=== PATIENT | female | born 1985 | race African-American/Black ===

== ENCOUNTER 2019-09-02 20:38 | Emergency (ER) | payer MEDICAID, OTHER ==
[~2019-09-02] VITALS: Ht 185.4 cm; Wt 158.8 kg
[2019-09-02] MEDS ORDERED: cloNIDine HCL 0.1 MG TAB PO ONE (21:15)
[2019-09-02] MEDS ORDERED: InsuLIN REG 1unit/0.01ml Soln (100units/ml) IV ONE (21:15)
[2019-09-02] MEDS ORDERED: SODIUM CHLORIDE 0.9% 1,000 ML IV ONE ×2 (21:15→22:15)
[2019-09-02 22:10] LABS: Basophils # (auto) 0 uL; Basophils % (auto) 0.3 % (0.0-2.0); Eosinophils # (auto) 0.1 uL; Eosinophils % (auto) 1.2 % (0.0-7.0); Hemoglobin 12.5 g/dL (12.2-16.2); Lymphocytes # (auto) 1.9 uL; Lymphocytes % (auto) 22.5 % (10.0-50.0); Mean Corpuscular Hemoglobin 25.1 pg (28.0-32.0); Mean Corpuscular Volume 78.4 fL (80.0-100.0); Monocytes # (auto) 0.5 uL; Monocytes % (auto) 5.7 % (0.0-12.0); Neutrophils # (auto) 5.8 uL; Neutrophils % (auto) 70.3 % (37.0-80.0); Platelet Count (auto) 257 10^3/uL (140-450); Red Blood Cells 4.97 10^6/uL (4.0-5.20); Red Cell Distribution Width 14.2 % (11.8-14.3); White Blood Cell 8.3 10^3/uL (4.4-10.8)
[2019-09-02 22:17] LABS: Albumin 3.7 g/dL (3.4-5.0); BUN/Creatinine Ratio 15.2; Calcium 9.5 mg/dL (8.5-10.1); Potassium 4.3 mmol/L (3.5-5.1)
[2019-09-02 22:19] LABS: INR 1.08 (0.9-1.15); Partial Thromboplastin Time 29.9 sec (23.64-32.05)
[2019-09-02 22:20] LABS: Bilirubin, Total 0.2 mg/dL (0.2-1.0); Total Protein 8.8 g/dL (6.4-8.2)
[2019-09-03 00:03] VITALS: BP 143/86
== END 2019-09-03 00:06 | disposition home or self-care (01) ==
LOC: ER 20:45
DX: E11.65 Type 2 diabetes mellitus with hyperglycemia (principal); B37.3 Candidiasis of vulva and vagina; I16.0 Hypertensive urgency
CPT/HCPCS: 36415; 80053; 82010; 82962; 85025; 85610; 85730; 96361; 96374; 99284; J1815; J7030